=== PATIENT | male | born 1960 | race Two or more races ===

== ENCOUNTER → 2021-10-14 | Day surgery (SDC) | payer MEDICAID, MEDICARE ==
[~2021-10-14] VITALS: Ht 167.6 cm; Wt 81.0 kg
[~2021-10-14] MED LIST: ATOR20TA58 PO; BUPIVACAINE-EPI 0.5% 30 ML VIAL KIT. ONE; EMPA25TA3 PO; GLIP10TA13 PO; HYDR-2761 PO; HYDROmorphone 2 MG/ML INJ. IVP PRN; INSU100I13 SQ; INSULIN LISPRO 100 UNIT/ML 3ML VIAL for OP,RR ONLY. SQ PRN; IV RINGERS,LACTATED 1000ML 1,000 ML IV SCH; LIDOCAINE 2% PF 5 ML VIAL. ONE; LOSA1TAB19 PO; METF10007 PO; METO25TA4 PO; MIDAZOLAM HCL/PF 2 MG/2 ML VIAL. ONE; MORPHINE SULFATE 2 MG/ML INJ. IVP PRN; PROCHLORPERAZINE 10 MG/2 ML VIAL. IVP PRN; PROPOFOL 10 MG/ML (20ML) VIAL. IV ONE; fentaNYL PF VIAL 100 MCG/2 ML VIAL IVP PRN; fentaNYL PF VIAL 100 MCG/2 ML VIAL ONE
[2021-10-14 13:10] VITALS: BP 124/58
--- NOTE | 2021-10-14 14:41 | PDOC4 ---
Operative Note Operative Note Operative Note: Preoperative Diagnosis: History of colon cancer Postoperative Diagnosis: Same Procedure: Removal of Port-A-Cath Surgeon: [employer] Intern: OSKAR Fuentes, Darren Evans MS 3 Anesthesia: General EBL: 10 mL Specimen: Port-A-Cath to pathology Drains: None Complications: None Indication: The patient is a 61-year-old male who previously underwent chemotherapy for colon cancer. His Port-A-Cath is no longer needed and he was referred for removal. The risks of surgery were discussed which include bleeding, infection, pain, anesthetic risk, scar tissue, potential need for additional surgery or procedure. He understands and would like to proceed. Description: The patient was taken the operating and placed supine on the operating table. General anesthesia was performed. The left chest was prepped with ChloraPrep and draped in a standard surgical manner. An incision was made at the site of the prior scar. Cautery dissection was carried down to the port. The pocket was opened exposing the port itself. The attaching sutures were divided. The port and catheter were then readily excised and sent to pathology for gross evaluation. The catheter tract was oversewn with 3-0 Vicryl. Hemostasis was achieved with cautery. The skin was approximated with 4 Monocryl and infiltrated with half percent Marcaine with epinephrine. Steri-Strips and a sterile dressing were applied. The patient tolerated the procedure well and was sent to the recovery room in stable condition. At the end of the case all counts were correct. AVERY RONDON MD Oct 14, 2021 14:41
--- NOTE | 2021-10-14 14:46 | DISCH ---
DISCHARGE INSTRUCTIONS Condition on Discharge Condition on Discharge: Unstable Activity After Discharge Activity Instructions for Disc: Activity as tolerated Diet after Discharge Diet after Discharge: Regular Wound Incision Care Wound/Incision Care: Other, see below (keep dressing clean and dry X 72 hours, may then remove and shower) Follow-Up Follow up with: Dr Rondon in 2 weeks in office, call for appt [phone] AVERY RONDON MD Oct 14, 2021 14:46
[2021-10-14 15:30] VITALS: BP 107/44
== END | disposition home or self-care (01) ==
LOC: SURG 12:45
PROVIDERS: ATTEND Surgery
DX: Z45.2 Encounter for adjustment and management of vascular access device (principal); I10 Essential (primary) hypertension; E78.00 Pure hypercholesterolemia, unspecified; E11.9 Type 2 diabetes mellitus without complications; Z85.038 Personal history of other malignant neoplasm of large intestine; Z79.4 Long term (current) use of insulin; Z79.899 Other long term (current) drug therapy; Z98.890 Other specified postprocedural states
CPT/HCPCS: 36590; 82962; A4364; A4930; A6219; J0690; J2250; J2704; J3010; A4452